=== PATIENT | female | born 1960 | race Hispanic/Latino ===

== ENCOUNTER 2018-07-01 21:50 | Emergency (ER) | payer BC, OTHER ==
[2018-07-01 23:15] LABS: BASOPHILS % (AUTO) 1.9 % (0.0-5.0); EOSINOPHILS % (AUTO) 1.7 % (0.0-8.0); HEMATOCRIT 44.5 % (36-48); LYMPHOCYTES % (AUTO) 5.7 % (21.0-51.0); MEAN CORPUSCULAR HEMOGLOBIN 29.4 pg (27.0-33.0); MEAN CORPUSCULAR HGB CONC 33.9 g/dL (32.0-36.0); MEAN CORPUSCULAR VOLUME 86.9 fL (79-99); MONOCYTES % (AUTO) 6.3 % (3.0-13.0); NEUTROPHILS % (AUTO) 84.4 % (40.0-77.0); PLATELET COUNT (AUTO) 166 K/uL (130-400); RED BLOOD CELL COUNT(AUTO) 5.13 MIL/uL (4.00-5.50); RED CELL DISTRIBUTION WIDTH 13.9 % (11.0-15.5); WHITE BLOOD COUNT (AUTO) 7.6 K/uL (4.8-10.8)
[2018-07-01 23:19] LABS: CREATININE 0.8 mg/dL (0.5-1.5); POTASSIUM 4.4 mmol/L (3.5-5.1)
[2018-07-01] MEDS ORDERED: BENZONATATE 100 MG CAPSULE PO ONE (23:48)
[2018-07-01] MEDS ORDERED: IBUPROFEN 400 MG TABLET ONE (23:49)
== END 2018-07-02 00:09 | disposition home or self-care (01) ==
LOC: EDH 21:50
DX: J06.9 Acute upper respiratory infection, unspecified (principal); R11.2 Nausea with vomiting, unspecified; Z98.890 Other specified postprocedural states
CPT/HCPCS: 36415; 71046; 80048; 85025; 87804

== ENCOUNTER 2018-07-07 05:39 | Emergency (ER) | payer SELFPAY | END 2018-07-07 05:58 | disposition home or self-care (01) | LOC: EDH 05:39 | DX: J40 Bronchitis, not specified as acute or chronic (principal); B34.9 Viral infection, unspecified; Z98.890 Other specified postprocedural states ==

== ENCOUNTER 2021-04-10 17:43 | Emergency (ER) | payer BC, OTHER ==
[~2021-04-10] VITALS: Ht 147.3 cm; Wt 63.5 kg
[2021-04-10 18:11] VITALS: BP 183/107
[2021-04-10 18:50] VITALS: BP 155/82
[2021-04-10] MEDS ORDERED: HYDROCODONE/ACETAMINOPHEN 10/325 MG TAB PO ONE (19:00)
[2021-04-10] MEDS ORDERED: TRAM1TAB PO (19:32)
[2021-04-10] MEDS ORDERED: NAPR-1180 PO (19:32)
== END 2021-04-10 19:47 | disposition home or self-care (01) ==
LOC: EDH 17:43
DX: S76.011A Strain of muscle, fascia and tendon of right hip, initial encounter (principal); S83.91XA Sprain of unspecified site of right knee, initial encounter; S93.401A Sprain of unspecified ligament of right ankle, initial encounter; W10.8XXA Fall (on) (from) other stairs and steps, initial encounter; Y93.89 Activity, other specified; Y92.89 Other specified places as the place of occurrence of the external cause; Y99.8 Other external cause status
CPT/HCPCS: 73501; 73562; 73600

== ENCOUNTER 2022-09-23 19:36 | Emergency (ER) | payer BC ==
[~2022-09-23] VITALS: Ht 142.2 cm; Wt 78.9 kg
[~2022-09-23 19:36] MED LIST: NAPR-1180 PO; TRAM1TAB2 PO
[2022-09-23] MEDS ORDERED: IPRATROPIUM/ALBUTEROL SULFATE 3 ML SOLUTION IH ONE (21:00)
[2022-09-23 21:03] LABS: BASOPHILS % (AUTO) 0.2 % (0.0-5.0); HEMATOCRIT 43.5 % (36-48); LYMPHOCYTES % (AUTO) 16.4 % (21.0-51.0); MEAN CORPUSCULAR HEMOGLOBIN 28.4 pg (27.0-33.0); MEAN CORPUSCULAR HGB CONC 33.1 g/dL (32.0-36.0); MEAN CORPUSCULAR VOLUME 85.8 fL (79-99); MONOCYTES % (AUTO) 13.6 % (3.0-13.0); NEUTROPHILS % (AUTO) 67.4 % (40.0-77.0); PLATELET COUNT (AUTO) 193 K/uL (130-400); RED BLOOD CELL COUNT(AUTO) 5.07 MIL/uL (4.00-5.50); RED CELL DISTRIBUTION WIDTH 13.2 % (11.0-15.5); WHITE BLOOD COUNT (AUTO) 5.4 K/uL (4.8-10.8)
[2022-09-23 21:16] LABS: CREATININE 0.9 mg/dL (0.5-1.5); POTASSIUM 3.2 mmol/L (3.5-5.1)
[2022-09-23 21:25] LABS: ALBUMIN 3.7 g/dL (3.5-5.0); TOTAL PROTEIN, SERUM 6.9 g/dL (6.0-8.3)
[2022-09-23 21:28] LABS: B-TYPE NATRIURETIC PEPTIDE < 5 pg/mL (0-100)
[2022-09-23] MEDS ORDERED: KETOROLAC 15MG/ML VIAL (15MG/ML) ONE (22:25)
[2022-09-23] MEDS ORDERED: KETOROLAC 15MG/ML VIAL (15MG/ML) IV ONE (22:30)
[2022-09-23] MEDS ORDERED: HYDRALAZINE 20MG/ML VIAL ONE (22:45)
[2022-09-23] MEDS ORDERED: HYDRALAZINE 20MG/ML VIAL IV ONE (23:00)
[2022-09-23] MEDS ORDERED: OMEP40CA21 PO (23:22)
[2022-09-23] MEDS ORDERED: IBUP-1493 PO (23:22)
[2022-09-23 23:30] VITALS: BP 126/95
== END 2022-09-23 23:59 | disposition home or self-care (01) ==
LOC: EDH 19:36
DX: M54.9 Dorsalgia, unspecified (principal); I10 Essential (primary) hypertension; J40 Bronchitis, not specified as acute or chronic
CPT/HCPCS: 99284; 96374; 71046; 96375; 84484; 80053; 83880; 85025; 85378; 36415; 93005; 94640; J0360; J1885